=== PATIENT | male | born 1940 | race Caucasian/White ===

== ENCOUNTER 2017-02-15 10:31 | Inpatient (IN) | payer OTHER ==
[~2017-02-15] VITALS: Ht 177.8 cm; Wt 77.6 kg
[~2017-02-15 10:31] MED LIST: ADULT LOW DOSE81 M1 PO; AZOR 5/20 MG1 TABLET PO; BENTYL20 MG PO; CLARITIN10 MG PO; CRESTOR5 MG PO; LIDODERM 5% P1 PATCH TD; LISINOPRIL10 MG PO; MILK OF MAGN PO; Move Free Advanced T PO; NORCO 5/3251 TABLET PO; OSTEO BI-FLEX1 EAC1 PO; PANTOPRAZOLE SO40 MG PO; PLAVIX75 MG PO; POTASSIUM CITR15 MEQ PO; PRAVACHOL80 MG PO; PROTONIX40 MG PO; Plavix PO; TOPROL XL100 MG PO; VALACYCLOVIR1000 MG PO
[2017-02-15 11:15] LABS: HEMATOCRIT 40.9 % (38.0-50.0); MCH 33.5 PG (29.0-34.0); MCHC 35.5 G/DL (30.0-36.0); MCV 94.5 FL (86-99); MEAN PLAT.VOLUME 9.9 uM^3 (9.0-12.4); PLATELET COUNT 163 K/uL (156-360); RBC DIS.WIDTH-CV 10.7 % (11.8-14.6); RED BLOOD COUNT 4.33 M/uL (4.00-5.50); WHITE BLOOD COUNT 6.3 K/uL (4.1-10.2)
[2017-02-15 11:26] LABS: CHLORIDE 105 mEq/L (99-109); POTASSIUM 4.3 mEq/L (3.7-5.4); SODIUM 139 mEq/L (136-147)
[2017-02-15 11:28] LABS: GLUCOSE 178 mg/dL (70-99)
[2017-02-15 11:29] LABS: ANION GAP 8 MEQ/L (2-14)
[2017-02-15 11:32] LABS: GFR ESTIMATE (CALCULATED) > 59 mL/min/
[2017-02-15 11:33] LABS: UREA NITROGEN (BUN) 15 mg/dL (9-23)
[2017-02-15] MEDS ORDERED: AMLODIPINE BESYL5 MG PO (16:40)
[2017-02-15] MEDS ORDERED: DAILY VALUE1 EACH PO (16:42)
[2017-02-15] MEDS ORDERED: CIALIS20 MG PO (16:42)
[2017-02-15] MEDS ORDERED: CICLOPIROX6.6 ML TP (16:43)
[2017-02-15] MEDS ORDERED: SYSTANE BALANCE10 ML BOTH EYES (16:43)
[2017-02-15 18:57] VITALS: BP 194/81
[2017-02-15 19:23] LABS: TROP-I INTERPRETATION NEGATIVE; TROPONIN-I 0.03 ng/mL (0.0-0.30)
[2017-02-15 23:00] LABS: HDL CHOLESTEROL 70 MG/DL (Desirable>=40); LDL CHOLESTEROL 114 mg/dL (Desirable<100); NON-HDL CHOLESTEROL 134 mg/dL (Desirable<160); TOTAL CHOLESTEROL 204 mg/dL (Desirable<200); TRIGLYCERIDES 102 MG/DL (Normal: <150)
[2017-02-16] VITALS: BP 150/67
[2017-02-16 00:03] LABS: TROP-I INTERPRETATION NEGATIVE; TROPONIN-I 0.02 ng/mL (0.0-0.30)
[2017-02-16 05:45] VITALS: BP 180/80
[2017-02-16 06:38] LABS: TROP-I INTERPRETATION NEGATIVE; TROPONIN-I 0.03 ng/mL (0.0-0.30)
[2017-02-16 07:36] VITALS: BP 188/85
[2017-02-16 08:12] LABS: Estimated Average Glucose 123 mg/dL (70-123); HEMOGLOBIN A1c (GLYCOHEMOGLOB) 5.9 % HGB (Below 5.7)
[2017-02-16 11:02] VITALS: BP 156/69
[2017-02-16 15:54] VITALS: BP 163/77
[2017-02-17 00:15] VITALS: BP 142/78
[2017-02-17 04:05] VITALS: BP 160/71
[2017-02-17 07:59] VITALS: BP 174/74
[2017-02-17] MEDS ORDERED: LO-DOSE ASPIRIN81 M2 PO (08:45)
[2017-02-17] MEDS ORDERED: NIFEDIPINE10 MG PO (08:45)
== END 2017-02-17 11:57 | disposition home or self-care (01) | DRG 66 ==
LOC: EME 10:31 → EDOF 15:40 → 5WEST 18:54
PROVIDERS: Internal Medicine
DX: I63.9 Cerebral infarction, unspecified (principal); I10 Essential (primary) hypertension; E78.5 Hyperlipidemia, unspecified; K21.9 Gastro-esophageal reflux disease without esophagitis; Z85.46 Personal history of malignant neoplasm of prostate; Z86.73 Personal history of transient ischemic attack (TIA), and cerebral infarction without residual deficits; Z87.891 Personal history of nicotine dependence; Z79.02 Long term (current) use of antithrombotics/antiplatelets
CPT/HCPCS: 70450; 70551; 80048; 80061; 83036; 84484; 85027; 92610 GN; 93005; 93306; 93880; 99281; 99285; G0378; G8978 GP CH; G8979 GP CH; G8980 GP CH; G8987 GO CH; G8988 GO CH; G8989 GO CH; G8996 GN CH; G8997 GN CH; G8998 GN CH

== ENCOUNTER → 2017-05-20 | Outpatient (CLI) | payer OTHER ==
[~2017-05-20] VITALS: Ht 175.3 cm; Wt 78.5 kg
[~2017-05-20] MED LIST changes: +AMLODIPINE BESYL5 MG PO; +CATAPRES0.1 MG PO; +CIALIS20 MG PO; +CICLOPIROX6.6 ML TP; +DAILY VALUE1 EACH PO; +KLONOPIN0.5 M1 PO; +LO-DOSE ASPIRIN81 M2 PO; +NIFEDIPINE10 MG PO; +PROCARDIA XL60 MG PO; +SYSTANE BALANCE10 ML BOTH EYES
== END | disposition home or self-care (01) ==
LOC: AMB 11:52
PROC: B246ZZ4 Ultrasonography of Right and Left Heart, Transesophageal (ICD-10-PCS; principal; 2017-05-20)
DX: I10 Essential (primary) hypertension (principal); I65.22 Occlusion and stenosis of left carotid artery; R00.2 Palpitations; Z86.73 Personal history of transient ischemic attack (TIA), and cerebral infarction without residual deficits; E78.5 Hyperlipidemia, unspecified; K21.9 Gastro-esophageal reflux disease without esophagitis; H34.9 Unspecified retinal vascular occlusion; B02.9 Zoster without complications; Z79.02 Long term (current) use of antithrombotics/antiplatelets; Z79.82 Long term (current) use of aspirin
CPT/HCPCS: 93312; J2250; J2310; J3010